=== PATIENT | female | born 1940 | race Caucasian/White ===

== ENCOUNTER → 2016-12-19 | Outpatient (CLI) | payer MEDICARE, OTHER ==
[~2016-12-19] MED LIST: ASPIRIN 81M81 MG/TA2 PO; CALCIUM CARBON650 M1 PO; CAPOTEN 25MG25 MG PO; MAGNESIUM250 MG PO; PRAVACHOL80 MG PO; PRILOSEC 20MG20 MG PO; SUPER EPA 2002000 MG PO
== END ==
LOC: COL.RAD 10:12
DX: K42.9 Umbilical hernia without obstruction or gangrene (principal)

== ENCOUNTER → 2017-09-20 | Outpatient (CLI) | payer MEDICARE, OTHER | LOC: COL.RAD 09:45 | DX: R31.21 Asymptomatic microscopic hematuria (principal); K86.9 Disease of pancreas, unspecified; K57.30 Diverticulosis of large intestine without perforation or abscess without bleeding; K44.9 Diaphragmatic hernia without obstruction or gangrene | CPT/HCPCS: Q9967 ==

== ENCOUNTER → 2018-04-06 | Outpatient (CLI) | payer MEDICARE, OTHER | LOC: MC.RAD 13:09 | DX: Z12.31 Encounter for screening mammogram for malignant neoplasm of breast (principal) ==

== ENCOUNTER 2018-11-22 10:32 | Emergency (ER) | payer MEDICARE, OTHER ==
[~2018-11-22] VITALS: Ht 154.9 cm; Wt 61.4 kg
[2018-11-22 10:37] VITALS: TEMP 98.7
[2018-11-22 11:13] LABS: BASO % 0.2 % (0.0-2.0); EOS % 0.2 % (0-4.0); GRAN # 4.5 (1.4-6.5); GRAN % 69.3 % (42.2-75.2); HEMATOCRIT 44.5 % (37.0-47.0); HEMOGLOBIN 14.7 g/dl (12.5-16.0); LYMPH # 1.2 (1.2-3.4); LYMPH % 18.9 % (20.0-51.0); MEAN CELL VOLUME 91 fl (80.0-100.0); MEAN CORPUSCULAR HEMOGLOBIN 30 pg (27.0-31.0); MEAN CORPUSCULAR HGB CONC 33 g/dl (33.0-37.0); MEAN PLATELET VOLUME 11.3 fl (7.4-10.4); MONO # 0.7 (0.1-0.6); MONO % 11.2 % (1.7-9.3); PLATELET COUNT 237 K/mm3 (130-400); RED BLOOD COUNT 4.89 M/mm3 (4.10-5.30); REDCELL DISTRIBUTION WIDTH-CV 13.4 % (11.5-14.5)
[2018-11-22 11:20] LABS: ALANINE AMINOTRANSFERASE 326 U/L (9-52); ALBUMIN 4.8 gm/dL (3.5-5.0); ALKALINE PHOSPHATASE 177 U/L (50-136); ANION GAP 13 mmol/L (7-16); AST,SGOT 185 U/L (15-37); BILIRUBIN,TOTAL 0.7 mg/dL (0.0-1.0); BLOOD UREA NITROGEN 26 mg/dL (7-17); C-REACTIVE PROTEIN 1.8 mg/dL (0.0-0.9); CALCIUM 9.4 mg/dL (8.4-10.2); CARBON DIOXIDE 24 mmol/L (22-30); CHLORIDE 100 mmol/L (98-107); CREATININE, serum 1.28 (0.52-1.25); GLUCOSE 140 mg/dL (74-106); LIPASE 351 U/L (23-300); SODIUM 137 mmol/L (137-145); TOTAL PROTEIN 8.7 gm/dL (6.4-8.2)
[2018-11-22 11:22] LABS: COLLECTION METHOD CLEAN CATCH
[2018-11-22 11:32] LABS: MUCOUS Present /lpf; PH 5 (5-8); SQUAMOUS EPITHELIAL 0-2 /hpf; URINE APPEARANCE Clear; URINE BACTERIA None Seen /hpf; URINE BILIRUBIN Negative (NEGATIVE); URINE BLOOD 1+ (NEGATIVE); URINE COLOR Yellow; URINE GLUCOSE Negative (NEGATIVE); URINE KETONE Trace (NEGATIVE); URINE LEUKOCYTE ESTERASE Negative (NEGATIVE); URINE NITRATE Negative (NEGATIVE); URINE PROTEIN(semi-quant) Negative (NEGATIVE); URINE RBC 0-2 /hpf; URINE UROBILINOGEN Negative (NEGATIVE)
[2018-11-22 11:32] LABS: TROPONIN-I < 0.012 ng/mL (0.000-0.035)
[2018-11-22 14:25] VITALS: BP 140/84; PULSE 86
== END 2018-11-22 14:30 | disposition home or self-care (01) ==
LOC: COL.ER 10:32
PROVIDERS: Emergency Medicine
DX: R19.7 Diarrhea, unspecified (principal); E87.6 Hypokalemia; K21.9 Gastro-esophageal reflux disease without esophagitis; I10 Essential (primary) hypertension; Z79.82 Long term (current) use of aspirin
CPT/HCPCS: C9113; J2405; J7030; Q9967

== ENCOUNTER 2019-12-13 08:16 | Day surgery (SDC) | payer MEDICARE, OTHER ==
[~2019-12-13] VITALS: Ht 154.9 cm; Wt 60.0 kg
[2019-12-13] MEDS ORDERED: HYGROTON 2525 MG/TAB PO (08:35)
[2019-12-13 08:36] VITALS: BP 121/90; PULSE 99; TEMP 98
[2019-12-13 09:55] VITALS: BP 119/78; PULSE 80; TEMP 97.6
--- NOTE | 2019-12-13 09:55 | NUR ---
Patient brought back to [facility] [address] from ENDO suite via cart. Ambulated to chair without difficulty. Alert and oriented. Placed on monitors, vital signs stable. Denies pain or nausea. Report recieved from Marisol RANKIN. Patient is requesting water and crackers. Warm blanket provided, call turner within reach. Will conitnue to monitor.
[2019-12-13 10:10] VITALS: BP 157/75; PULSE 73
--- NOTE | 2019-12-13 10:10 | NUR ---
Patient tolerating food and drink without difficulty. No complaints at this time. Will continue to monitor.
[2019-12-13 10:25] VITALS: BP 149/78; PULSE 60
--- NOTE | 2019-12-13 10:25 | NUR ---
Patient states she is feeling well at this time. Does not want anything else to eat or drink. Denies pain or nausea. Will continue to monitor.
--- NOTE | 2019-12-13 10:40 | NUR ---
Dr. Huitron at bedside to explain procedure. All questions answered. informed he can come machine pecan picker Natalie at front patient entrance. IV removed without difficulty. Discharge instructions reviewed with patient. All questions answered. Education packets provided. Patient to get dressed at this time.
--- NOTE | 2019-12-13 11:00 | NUR ---
Patient brought down to lobby via wheel chair. All belongings in hand. met at front entrance, to drive patient home.
== END 2019-12-13 11:00 | disposition home or self-care (01) ==
LOC: SDCO 08:16
DX: K57.30 Diverticulosis of large intestine without perforation or abscess without bleeding (principal); K56.699 Other intestinal obstruction unspecified as to partial versus complete obstruction; R19.7 Diarrhea, unspecified; K21.9 Gastro-esophageal reflux disease without esophagitis; K44.9 Diaphragmatic hernia without obstruction or gangrene; E78.00 Pure hypercholesterolemia, unspecified; I10 Essential (primary) hypertension; Z85.038 Personal history of other malignant neoplasm of large intestine; Z86.010 Personal history of colon polyps; Z90.49 Acquired absence of other specified parts of digestive tract; Z90.710 Acquired absence of both cervix and uterus; Z88.8 Allergy status to other drugs, medicaments and biological substances
CPT/HCPCS: J2704; J7030